=== PATIENT | female | born 1990 | race Caucasian/White ===

== ENCOUNTER → 2018-11-23 | Outpatient (CLI) | payer OTHER ==
[~2018-11-23] MED LIST: AMOXICILLIN500 M2 PO; AMOXIL500 MG PO; DEPO PROVER150 MG/M1 IM; MACROBID100 M1 PO; MOTRIN 800 MG E4 TAB PO; NAPROSYN500 MG PO; PRENATAL1 TA1 PO; PYRIDIUM200 MG PO; TRAMADOL HCL50 MG PO; ZITHROMAX Z PA250 MG PO; ZOFRAN ODT4 MG PO; ZYRTEC10 MG PO
[2018-11-23 12:28] LABS: HEMATOCRIT 42.6 % (37.0-47.0); HEMOGLOBIN 13.9 g/dl (12.0-16.0); MEAN CELL VOLUME 93.6 fl (81.0-99.0); MEAN CORPUSCULAR HGB 30.5 pg (27.0-31.0); MEAN CORPUSCULAR HGB CONC 32.6 g/dl (33.0-37.0); MEAN PLATELET VOLUME 10.3 fl (9.6-12.3); RED BLOOD COUNT 4.55 10*6/uL (4.10-5.10); RED CELL DISTRI WIDTH 11.6 % (0-14.5); WHITE BLOOD COUNT 7.7 10*3/uL (4.8-10.8)
[2018-11-23 12:39] LABS: CHLORIDE 107 mmol/L (98-107); POTASSIUM 3.7 mmol/L (3.5-5.1); SODIUM 139 mmol/L (136-145)
[2018-11-23 12:55] LABS: ALBUMIN 3.8 gm/dl (3.1-4.5); ALKALINE PHOSPHATASE 41 U/L (45-117); BUN 10 mg/dl (7-24); CREATININE 0.74 mg/dL (0.55-1.02); SGOT/AST 7 IU/L (3-35); SGPT/ALT 12 U/L (12-78); TOTAL PROTEIN 7.6 gm/dL (6.4-8.2)
[2018-11-24 16:07] LABS: EBV NUCLEAR ANTIGEN IGG <18.0 U/mL (0.0-17.9); EPSTEIN-BARR VCA IGG AB <18.0 U/mL (0.0-17.9); EPSTEIN-BARR VCA IGM AB <36.0 U/mL (0.0-35.9)
== END | disposition home or self-care (01) ==
LOC: LAB 11:38
PROVIDERS: Family Medicine
DX: R53.83 Other fatigue (principal); I88.8 Other nonspecific lymphadenitis; J02.9 Acute pharyngitis, unspecified

== ENCOUNTER → 2019-12-13 | Outpatient (CLI) | payer BC | END | disposition home or self-care (01) | LOC: COVID19 08:27 | PROVIDERS: ATTEND Nurse Practitioner Family | DX: J02.9 Acute pharyngitis, unspecified (principal); M54.9 Dorsalgia, unspecified; R68.83 Chills (without fever); Z20.828 Contact with and (suspected) exposure to other viral communicable diseases ==

== ENCOUNTER → 2020-01-31 | Outpatient (CLI) | payer BC | END | disposition home or self-care (01) | LOC: COVID19 11:03 | PROVIDERS: ATTEND Family Medicine | DX: Z20.828 Contact with and (suspected) exposure to other viral communicable diseases (principal) ==